=== PATIENT | male | born 1960 | race Two or more races ===

== ENCOUNTER 2019-04-28 10:07 | Day surgery (SDC) | payer OTHER ==
[2019-04-28] VITALS (7 sets, daily range): BP systolic 107–238; BP diastolic 68–113; PULSE 68–70; RESP 16–20; Ht 170.2 cm; Wt 81.0 kg
[~2019-04-28] VITALS: Ht 170.2 cm; Wt 81.0 kg
[~2019-04-28 10:07] MED LIST: ASPI-903 PO; ATORVASTATIN; CHOL100062 PO; CLONIDINE; CLOP300T15 PO; CYAN100T35 PO; DILT120T PO; FER325 PO; FOLI-49 PO; FURO20TA3 PO; HUMALOG INSULIN; HYDR-3672 PO; HYDRALAZINE; INSU100C SQ; INSU100V19 SQ; LOSA100T15 PO; METO-429 PO; OMEG100016 PO; OMEG1CAP90 PO; colace
[2019-04-28] MEDS ORDERED: PROPOFOL 20 ML ONE (11:50)
[2019-04-28] MEDS ORDERED: LABETALOL HCL 20MG INJ ONE (12:26)
== END 2019-04-28 13:40 | disposition home or self-care (01) ==
LOC: GIL 10:07
PROVIDERS: ATTEND Internal Medicine Gastroenterology
DX: K64.8 Other hemorrhoids (principal); D12.3 Benign neoplasm of transverse colon; K21.9 Gastro-esophageal reflux disease without esophagitis; E78.5 Hyperlipidemia, unspecified; E11.9 Type 2 diabetes mellitus without complications; I25.10 Atherosclerotic heart disease of native coronary artery without angina pectoris; I13.10 Hypertensive heart and chronic kidney disease without heart failure, with stage 1 through stage 4 chronic kidney disease, or unspecified chronic kidney disease; N18.9 Chronic kidney disease, unspecified; Z95.0 Presence of cardiac pacemaker
CPT/HCPCS: 43239; 45385; 82962; 88305; 88312; Z7610